=== PATIENT | male | born 1940 ===

== ENCOUNTER 2022-09-14 07:19 | Outpatient (CLI) | payer OTHER | END 2022-09-14 07:33 | disposition home or self-care (01) | LOC: LAB 07:19 | PROVIDERS: ATTEND Surgery | DX: C18.2 Malignant neoplasm of ascending colon (principal); R59.0 Localized enlarged lymph nodes ==

== ENCOUNTER 2022-09-20 07:30 | Inpatient (IN) | payer OTHER ==
[~2022-09-20] VITALS: Ht 182.9 cm; Wt 88.0 kg
[2022-09-20] MEDS ORDERED: IRBESARTAN150 MG PO (10:11)
[2022-09-20] MEDS ORDERED: VYTORIN 10-201 EACH PO (10:12)
[2022-09-30] MEDS ORDERED: INTEGRA PLUS C1 EACH PO (10:43)
[2022-09-30] MEDS ORDERED: TAMS0.4C PO (10:44)
[2022-09-30] MEDS ORDERED: LEVSIN/SL0.125 MG SL (10:45)
== END 2022-09-30 13:17 | disposition home or self-care (01) | DRG 330 ==
LOC: EDUNIT# 07:30 → SURH 09-26 05:55 → O/R 09-26 05:55 → SURH 09-26 07:00
PROVIDERS: ADMIT Surgery; ATTEND Surgery
PROC: 0DTF4ZZ Resection of Right Large Intestine, Percutaneous Endoscopic Approach (ICD-10-PCS; principal; 2022-09-27)
PROC: 07BB4ZZ Excision of Mesenteric Lymphatic, Percutaneous Endoscopic Approach (ICD-10-PCS; 2022-09-27)
PROC: 30233N1 Transfusion of Nonautologous Red Blood Cells into Peripheral Vein, Percutaneous Approach (ICD-10-PCS; 2022-09-28)
DX: C18.2 Malignant neoplasm of ascending colon (principal); L76.32 Postprocedural hematoma of skin and subcutaneous tissue following other procedure; R59.0 Localized enlarged lymph nodes; D64.9 Anemia, unspecified; E03.9 Hypothyroidism, unspecified; I11.9 Hypertensive heart disease without heart failure; Z20.822 Contact with and (suspected) exposure to COVID-19